=== PATIENT | female | born 1975 | race Caucasian/White ===

== ENCOUNTER 2016-10-18 18:52 | Emergency (ER) | payer MEDICARE, OTHER | END 2016-10-18 19:54 | disposition left against medical advice (07) | LOC: FER 18:52 | DX: R19.7 Diarrhea, unspecified (principal); R39.89 Other symptoms and signs involving the genitourinary system; Z53.8 Procedure and treatment not carried out for other reasons ==

== ENCOUNTER 2016-11-21 10:52 | Emergency (ER) | payer MEDICARE, OTHER ==
[2016-11-21 11:48] LABS: BASOPHIL 0.2 % (0-2); EOSINOPHIL 0.3 % (0-5); HCT 36.9 % (37.0-47.0); HGB 12.2 g/dl (12.5-16.0); LYMPHOCYTE 32.1 % (15-48); MCH 25.9 pg (25.0-31.0); MCHC 33.1 g/dL (32.0-36.0); MCV 78.3 fL (78.0-100.0); MONOCYTE 5.1 % (0-12); MPV 10.1 fL (6.0-9.5); NEUTROPHIL 62.3 % (41-80); PLT 386 K/uL (150-400); RBC 4.71 M/uL (4.20-5.40); RDW 15.3 % (11.5-14.0); WBC 9.9 K/uL (4.0-10.5)
[2016-11-21 11:59] LABS: INR 0.94 (0.9-1.2); PROTHROMBIN TIME 12.2 SECONDS (11.7-14.0); PTT 21.4 SECONDS (23.2-31.4)
[2016-11-21 12:17] LABS: ALBUMIN 3.4 g/dL (3.5-5.0); BILIRUBIN - TOTAL 0.2 mg/dL (0.1-1.0); CREATININE 0.5 mg/dL (0.5-1.0); GLOBULIN (CALCULATION) 2.8 g/dL (2.2-4.2); MAGNESIUM 1.88 mg/dL (1.40-2.10); POTASSIUM 3.7 mmol/L (3.5-5.1); TOTAL PROTEIN 6.2 g/dL (6.4-8.3)
[2016-11-21 12:19] LABS: CKMB 1.12 ng/mL (0.97-4.94); MYOGLOBIN 21 ng/mL (26-65); PRO-BNP 99 pg/mL (0-125); TROPONIN T < 0.010 ng/mL
[2016-11-21 12:31] LABS: FT4 (FREE T4) 0.814 ng/dL (0.93-1.70); TSH (THYROID STIM HORMONE) 0.437 uIU/mL (0.270-4.200)
== END 2016-11-21 13:44 | disposition home or self-care (01) ==
LOC: FER 10:52
PROVIDERS: Internal Medicine
DX: J04.0 Acute laryngitis (principal); R00.0 Tachycardia, unspecified; J45.909 Unspecified asthma, uncomplicated; E03.9 Hypothyroidism, unspecified; K21.9 Gastro-esophageal reflux disease without esophagitis; F41.9 Anxiety disorder, unspecified; F32.9 Major depressive disorder, single episode, unspecified; F17.200 Nicotine dependence, unspecified, uncomplicated; Z88.2 Allergy status to sulfonamides; Z88.8 Allergy status to other drugs, medicaments and biological substances; Z98.890 Other specified postprocedural states; Z79.51 Long term (current) use of inhaled steroids; Z79.899 Other long term (current) drug therapy
CPT/HCPCS: 36415; 71010; 80053; 82550; 82553; 83735; 83874; 83880; 84439; 84443; 84484; 85025; 85610; 85730; 93005; 94640

== ENCOUNTER 2016-11-27 19:33 | Emergency (ER) | payer MEDICARE, OTHER | END 2016-11-27 22:21 | disposition home or self-care (01) | LOC: FER 19:33 | DX: J03.90 Acute tonsillitis, unspecified (principal); E03.9 Hypothyroidism, unspecified; L40.9 Psoriasis, unspecified; Z88.2 Allergy status to sulfonamides; Z88.8 Allergy status to other drugs, medicaments and biological substances; F17.210 Nicotine dependence, cigarettes, uncomplicated | CPT/HCPCS: 86308; 87450; 99283 ==

== ENCOUNTER 2017-02-14 17:06 | Emergency (ER) | payer MEDICARE, OTHER ==
[2017-02-14 17:45] LABS: BASOPHIL 0.2 % (0-2); EOSINOPHIL 0.2 % (0-5); HGB 13.9 g/dl (12.5-16.0); LYMPHOCYTE 19.2 % (15-48); MCH 26.7 pg (25.0-31.0); MCHC 33.1 g/dL (32.0-36.0); MCV 80.6 fL (78.0-100.0); MONOCYTE 3.9 % (0-12); NEUTROPHIL 76.5 % (41-80); PLT 328 K/uL (150-400); RBC 5.21 M/uL (4.20-5.40); RDW 22.5 % (11.5-14.0); WBC 10.7 K/uL (4.0-10.5)
[2017-02-14 17:58] LABS: INR 0.99 (0.9-1.2); PROTHROMBIN TIME 12.2 SECONDS (11.4-13.2); PTT 24.3 SECONDS (24.3-32.1)
[2017-02-14 18:00] LABS: D-DIMER < 0.27 ug/mLFEU (0.00-0.41)
[2017-02-14 18:09] LABS: ALBUMIN 3.6 g/dL (3.5-5.0); BILIRUBIN - TOTAL 0.2 mg/dL (0.1-1.0); CREATININE 0.5 mg/dL (0.5-1.0); GLOBULIN (CALCULATION) 3.2 g/dL (2.2-4.2); MAGNESIUM 2.1 mg/dL (1.40-2.10); POTASSIUM 4.2 mmol/L (3.5-5.1); TOTAL PROTEIN 6.8 g/dL (6.4-8.3)
[2017-02-14 18:12] LABS: MYOGLOBIN 21 ng/mL (26-65); PRO-BNP 36 pg/mL (0-125); TROPONIN T < 0.010 ng/mL
== END 2017-02-14 20:11 | disposition home or self-care (01) ==
LOC: FER 17:06
PROVIDERS: Internal Medicine
DX: R07.89 Other chest pain (principal); J45.909 Unspecified asthma, uncomplicated; I10 Essential (primary) hypertension; E78.5 Hyperlipidemia, unspecified; Z79.899 Other long term (current) drug therapy
CPT/HCPCS: 36415; 71010; 80053; 82550; 82553; 83735; 83874; 83880; 84484; 85025; 85379; 85610; 85730; 93005; J2405

== ENCOUNTER 2020-09-07 19:20 | Emergency (ER) | payer MEDICARE, OTHER ==
[~2020-09-07 19:20] MED LIST: CARVEDILOL 1212.5 MG PO; CELEXA20 MG PO; CORTEF10 MG PO; CYPROHEPTADINE H4 M1 PO; DUONEB 2.5-0.5M1 AMP INH; MUCINEX100 MG PO; NAPROXEN500 MG PO; PEPCID AC20 MG PO; PREDNISONE 20MG20 MG PO; VOLTAREN **OUT50 MG PO
[2020-09-07 19:50] LABS: BASOPHIL 0.2 % (0-2); EOSINOPHIL 0.1 % (0-5); HGB 15.2 g/dl (12.5-16.0); LYMPHOCYTE 14.9 % (15-48); MCH 30.2 pg (25.0-31.0); MCHC 33.8 g/dL (32.0-36.0); MCV 89.5 fL (78.0-100.0); MONOCYTE 2.7 % (0-12); MPV 9.7 fL (6.0-9.5); NEUTROPHIL 81.7 % (41-80); NRBC 0; PLT 380 K/uL (150-400); RBC 5.03 M/uL (4.20-5.40); RDW 13.7 % (11.5-14.0); WBC 12.8 K/uL (4.0-10.5)
[2020-09-07 20:01] LABS: ALBUMIN 3.7 g/dL (3.4-5.0); BILIRUBIN - TOTAL 0.4 mg/dL (0.2-1.0); CREATININE 0.63 mg/dL (0.51-0.95); GLOBULIN (CALCULATION) 3.7 g/dL; TOTAL PROTEIN 7.4 g/dL (6.4-8.2)
[2020-09-07 22:12] LABS: CORONAVIRUS 2019 SARS-COV-2 NEGATIVE (NEGATIVE); INFLUENZA A NAA NEGATIVE (NEGATIVE)
== END 2020-09-07 22:10 | disposition home or self-care (01) ==
LOC: FER 19:20
PROVIDERS: Nurse Practitioner Family
DX: R06.02 Shortness of breath (principal); R07.9 Chest pain, unspecified; E11.9 Type 2 diabetes mellitus without complications; Z88.2 Allergy status to sulfonamides; Z88.8 Allergy status to other drugs, medicaments and biological substances; Z20.822 Contact with and (suspected) exposure to COVID-19
CPT/HCPCS: 36415; 71045; 71275; 80053; 82533; 83880; 84484; 85025; 85379; 93005; J7030; Q9967; U0002

== ENCOUNTER 2020-11-02 20:53 | Emergency (ER) | payer MEDICARE, OTHER ==
[2020-11-02] MEDS ORDERED: NAPROSYN375 MG PO (23:05)
[2020-11-02] MEDS ORDERED: ZOFRAN4 M1 PO (23:05)
== END 2020-11-02 23:18 | disposition home or self-care (01) ==
LOC: FER 20:53
DX: R51.9 Headache, unspecified (principal); M54.2 Cervicalgia; I10 Essential (primary) hypertension; F17.200 Nicotine dependence, unspecified, uncomplicated; Z88.2 Allergy status to sulfonamides; Z88.8 Allergy status to other drugs, medicaments and biological substances
CPT/HCPCS: 70450; J1885